=== PATIENT | male | born 1955 | race Caucasian/White ===

== ENCOUNTER 2022-11-06 13:18 | Emergency (ER) | payer OTHER ==
[~2022-11-06] VITALS: Ht 177.8 cm; Wt 86.2 kg
[2022-11-06 13:35] VITALS: BP 145/39
[2022-11-06] MEDS ORDERED: ONDANSETRON 4 MG/2 ML VIAL IVP ONE ×2 (13:50→15:00)
[2022-11-06] MEDS ORDERED: MORPHINE SULFATE 4 MG/ML SYR IVP ONE (13:50)
[2022-11-06] MEDS ORDERED: fentaNYL citrate 0.05 MG/ML VIAL IVP ONE (15:00)
[2022-11-06] MEDS ORDERED: ACET-10509 PO (16:05)
[2022-11-06] MEDS ORDERED: IBUP-2213 PO (16:05)
--- NOTE | 2022-11-06 17:19 | NUR ---
Patient discharged with v/s stable. Written and verbal after care instructions given and explained. Patient verbalized understanding. Ambulatory with steady gait. All questions addressed prior to discharge. Advised to follow up with PMD.
== END 2022-11-06 17:19 | disposition home or self-care (01) ==
LOC: MED 13:18
DX: S43.015A Anterior dislocation of left humerus, initial encounter (principal); S63.502A Unspecified sprain of left wrist, initial encounter; Z98.890 Other specified postprocedural states; Z79.899 Other long term (current) drug therapy; Z79.1 Long term (current) use of non-steroidal anti-inflammatories (NSAID); X58.XXXA Exposure to other specified factors, initial encounter; Y92.89 Other specified places as the place of occurrence of the external cause; Y93.89 Activity, other specified; Y99.0 Civilian activity done for income or pay
CPT/HCPCS: 23650; 73020; 73030; 73110; 96374; 96375; 96376; 99284; J2270; J2405; J3010